=== PATIENT | female | born 1995 | race Two or more races ===

== ENCOUNTER → 2017-03-12 | Emergency (ER) | payer OTHER | END | disposition left against medical advice (07) | LOC: ER 21:31 | DX: O26.899 Other specified pregnancy related conditions, unspecified trimester (principal); R53.1 Weakness; Z53.21 Procedure and treatment not carried out due to patient leaving prior to being seen by health care provider ==

== ENCOUNTER 2017-07-08 11:35 | Observation (INO) | payer SELFPAY | END 2017-07-08 13:10 | disposition home or self-care (01) | DRG 782 | LOC: LDRP 11:35 | PROVIDERS: ADMIT Obstetrics & Gynecology; ATTEND Obstetrics & Gynecology | DX: O40.3XX0 Polyhydramnios, third trimester, not applicable or unspecified (principal); Z3A.30 30 weeks gestation of pregnancy | CPT/HCPCS: 59025; 76815; 81002; 99284; G0378 ==

== ENCOUNTER 2017-08-12 12:15 | Observation (INO) | payer MEDICAID ==
[2017-08-12] MEDS ORDERED: PREN-145 OR (15:44)
== END 2017-08-12 15:00 | disposition home or self-care (01) | DRG 566 ==
LOC: LDRP 12:15
PROVIDERS: ADMIT Specialist; ATTEND Specialist
DX: O26.893 Other specified pregnancy related conditions, third trimester (principal); N89.8 Other specified noninflammatory disorders of vagina; Z3A.35 35 weeks gestation of pregnancy
CPT/HCPCS: 59025; 76805; 81002; G0378

== ENCOUNTER 2017-08-23 12:30 | Observation (INO) | payer MEDICAID ==
[~2017-08-23 12:30] MED LIST: PREN-145 OR
== END 2017-08-23 14:10 | disposition home or self-care (01) | DRG 566 ==
LOC: LDRP 12:30
PROVIDERS: ADMIT Obstetrics & Gynecology; ATTEND Obstetrics & Gynecology
DX: O23.593 Infection of other part of genital tract in pregnancy, third trimester (principal); O62.9 Abnormality of forces of labor, unspecified; Z3A.36 36 weeks gestation of pregnancy
CPT/HCPCS: 59025; 76818; 81002; G0378